=== PATIENT | male | born 1965 | race Caucasian/White ===

== ENCOUNTER 2023-02-27 10:16 | Emergency (ER) | payer SELFPAY ==
[~2023-02-27] VITALS: Ht 162.6 cm; Wt 137.0 kg
[2023-02-27 10:20] VITALS: BP 149/98; PULSE 100; RESP 16; TEMP 97.9; O2SAT 100
[2023-02-27] MEDS ORDERED: LISI20TA31 MT (14:02)
[2023-02-27] MEDS ORDERED: METF-414 MT (14:02)
== END 2023-02-27 14:31 | disposition home or self-care (01) ==
LOC: ER 10:40
DX: Z76.0 Encounter for issue of repeat prescription (principal); I11.0 Hypertensive heart disease with heart failure; I50.9 Heart failure, unspecified; E11.9 Type 2 diabetes mellitus without complications
CPT/HCPCS: 99283

== ENCOUNTER 2023-03-05 23:24 | Emergency (ER) | payer SELFPAY ==
[~2023-03-05] VITALS: Ht 167.6 cm; Wt 126.0 kg
[~2023-03-05 23:24] MED LIST: LISI20TA31 MT; METF-414 MT
[2023-03-05 23:33] VITALS: O2SAT 99
[2023-03-06] MEDS ORDERED: ONDANSETRON HCL 4MG/2ML INJ IV STA (00:18)
[2023-03-06] MEDS ORDERED: MORPHINE SULFATE 4 MG/ML CPJ (NOT FOR IM USE) IV STA (00:18)
[2023-03-06 00:36] LABS: BASOPHILS % 1.3 % (0.0-2.0); EOSINOPHILS % 2.9 % (0.0-5.0); HEMATOCRIT. 38.4 % (42.0-52.0); HEMOGLOBIN. 11.9 g/dL (14.0-18.0); LYMPHOCYTES % 13.8 % (20.0-50.0); MEAN CORPUSCULAR HEMOGLOBIN 25.8 pg (28.0-32.0); MEAN CORPUSCULAR VOLUME 83.1 fL (80.0-94.0); MEAN PLATELET VOLUME 7.9 fl (7.4-10.4); MONOCYTES % 8.9 % (2.0-8.0); NEUTROPHILS % 73.1 % (40.0-76.0); PLATELET 233 x1000/uL (130-400); RED BLOOD CELL COUNT 4.62 mill/uL (4.7-6.1); RED CELL DISTRIBUTION WIDTH 19.4 % (11.6-14.6); WHITE BLOOD COUNT 4.8 x1000/uL (4.5-11.0)
[2023-03-06 00:45] LABS: INR 1.1; PROTHROMBIN TIME 12.2 sec (9.6-11.0)
[2023-03-06 00:58] LABS: ALANINE AMINOTRANSFERASE 9 IU/L (10-49); ALBUMIN 3.4 g/dL (3.2-4.8); ASPARTATE AMINOTRANSFERASE 22 IU/L (<34); BILIRUBIN TOTAL 0.9 mg/dL (0.1-1.0); CALCIUM 8.2 mg/dL (8.7-10.4); CARBON DIOXIDE 28 mEq/L (21-32); CHLORIDE 105 mEq/L (98-107); CREATININE 0.8 mg/dL (0.6-1.3); GLUCOSE 127 mg/dL (70-105); POTASSIUM 4.5 mEq/L (3.5-5.1); PROTEIN TOTAL 7.1 g/dL (6.0-8.3); SODIUM 139 mEq/L (136-145); TROPONIN I HIGH SENSITIVITY 21 ng/L (3.0-53); UREA NITROGEN BLOOD 14 mg/dL (9-23)
[2023-03-06] MEDS ORDERED: ONDANSETRON HCL 4MG/2ML INJ IV NR (02:00)
[2023-03-06] MEDS ORDERED: MORPHINE SULFATE 4 MG/ML CPJ (NOT FOR IM USE) IV NR (02:00)
[2023-03-06 02:14] VITALS: BP 141/62; PULSE 82; RESP 15; TEMP 97.2
== END 2023-03-06 02:23 | disposition home or self-care (01) ==
LOC: ER 23:24
DX: K80.20 Calculus of gallbladder without cholecystitis without obstruction (principal); R18.8 Other ascites; I11.0 Hypertensive heart disease with heart failure; I50.9 Heart failure, unspecified; E11.9 Type 2 diabetes mellitus without complications
CPT/HCPCS: 99285; 80053; 83690; 85025; 85610; 84484; 36415; 71045; 74176; 96374; 96375; J2405; J2270; Z7610